=== PATIENT | male | born 1975 | race Caucasian/White ===

== ENCOUNTER 2016-12-23 11:25 | Observation (INO) | payer OTHER ==
[2016-12-23 11:32] VITALS: BMI 25.8
[2016-12-23] MEDS ORDERED: Sodium Chloride 0.9% 1,000 ML IV STA (11:45)
--- NOTE | 2016-12-23 12:07 | ED PDOC ---
Arrival/HPI - General Chief Complaint: Syncope Time Seen by Provider: 12/23/16 11:32 Historian: Patient - History of Present Illness Narrative History of Present Illness (Text): 12/23/16 11:32 Vadim Cazares is a 41 year old male, whose past medical history includes kidney stones and hepatitis B, who presents to the emergency department after a syncopal episode prior to arrival. Patient was in Dr. Hernandez's office getting blood drawn. While sitting in a chair for blood draw, patient remembers starting to feel dizzy and reportedly passed out. Patient may had some jerking movements and possible seizure while unresponsive. Patient was helped down to the floor and patient woke up on the floor. Patient denies any trauma, head injury, headache, dizziness, or chest pain. Patient notes that he has had right sided abdominal pain for the past two months which is why he was in Dr. Hernandez's office. Patient denies any urinary symptoms, back pain, or any other complaint at this time. PMD: Dr. Hernandez Time/Duration: Prior to Arrival Symptom Onset: Sudden Symptom Course: Improving Activities at Onset: Light Context: Other (Dr. Hernandez's office) Past Medical History - Provider Review Nursing Documentation Reviewed: Yes - Infectious Disease Hx of Infectious Diseases: None - Genitourinary/Gynecological Hx Genitourinary Disorders: Yes Other/Comment: pt is on "[employer]" for kidney stones. - Psychiatric Hx Substance Use: No - Anesthesia Hx Anesthesia: No Family/Social History - Physician Review Nursing Documentation Reviewed: Yes Family/Social History: No Known Family HX Smoking Status: Never Smoked Hx Alcohol Use: No Hx Substance Use: No Allergies/Home Meds Allergies/Adverse Reactions: Allergies No Known Allergies Allergy (Verified 12/23/16 11:32) Home Medications: Home Meds Medication Instructions Recorded Confirmed No Known Home Med 12/23/16 12/23/16 Review of Systems - Physician Review All systems were reviewed & negative as marked: Yes - Review of Systems Constitutional: absent: Fevers, Night Sweats Eyes: absent: Vision Changes ENT: absent: Hearing Changes Respiratory: absent: SOB, Cough Cardiovascular: Syncope. absent: Chest Pain Gastrointestinal: Abdominal Pain Genitourinary Male: absent: Dysuria, Frequency, Hematuria, Urinary Output Changes Musculoskeletal: absent: Back Pain, Neck Pain Skin: absent: Rash, Pruritis Neurological: Other. absent: Headache, Dizziness Endocrine: absent: Diaphoresis Hemo/Lymphatic: absent: Easy Bleeding Psychiatric: absent: Depression Physical Exam Vital Signs Temp Pulse Resp BP Pulse Ox 12/23/16 15:22 98 F 75 18 92/56 L 100 12/23/16 13:40 70 18 101/67 98 12/23/16 11:53 98.3 F 75 17 99/69 L 99 Temperature: Afebrile Blood Pressure: Hypotensive Pulse: Regular Respiratory Rate: Normal Appearance: Positive for: Well-Appearing, Non-Toxic, Comfortable Pain Distress: None Mental Status: Positive for: Alert and Oriented X 3 Finger Stick Blood Glucose: 101 - Systems Exam Head: Present: Atraumatic, Normocephalic Pupils: Present: PERRL Conjunctiva: Present: Normal Mouth: Present: Moist Mucous Membranes Pharnyx: Present: Normal. No: ERYTHEMA Neck: Present: Normal Range of Motion Respiratory/Chest: Present: Clear to Auscultation, Good Air Exchange. No: Respiratory Distress, Accessory Muscle Use Cardiovascular: Present: Regular Rate and Rhythm, Normal S1, S2. No: Murmurs Abdomen: Present: Normal Bowel Sounds. No: Tenderness, Distention, Peritoneal Signs Back: Present: Normal Inspection Upper Extremity: Present: Normal Inspection. No: Cyanosis, Edema Lower Extremity: Present: Normal Inspection. No: Edema Neurological: Present: GCS=15, CN II-XII Intact, Speech Normal, Motor Func Grossly Intact Skin: Present: Warm, Dry, Normal Color. No: Rashes Psychiatric: Present: Alert, Oriented x 3, Normal Insight, Normal Concentration Medical Decision Making ED Course and Treatment: 12/23/16 11:32 Impression: 41 year old male complaining of a syncopal episode in Dr. Hernandez's office prior to arrival. Differential Diagnosis include but are not limited to: Vasovagal syncope related to blood draw vs. less likely Cardiogenic or Neurogenic syncope vs seizure Plan: -- Abdomen and Pelvis CT w/o contrast -- EKG -- Chest X-ray -- Urine Culture and Urinalysis -- Labs -- Toradol and IV Fluids -- Reassess and disposition Progress Notes: EKG: Ordered, reviewed, and independently interpreted the EKG. Rate : 66 BPM Rhythm : NSR Interpretation : Normal intervals. Normal axis. No ST-T wave changes. Comparison : No previous EKG for comparison. 12/23/16 12:[address]: Creator : Fredy Phelps MD FINDINGS: HEMORRHAGE:No intracranial hemorrhage. BRAIN:No mass effect or edema. No atrophy or chronic microvascular ischemic changes. VENTRICLES:Unremarkable. No hydrocephalus. CALVARIUM:Unremarkable. PARANASAL SINUSES:Unremarkable as visualized. No significant inflammatory changes. MASTOID AIR CELLS:Unremarkable as visualized. No inflammatory changes. OTHER FINDINGS:None. IMPRESSION: Normal CT of the Head. 12/23/16 13:[address]: Creator : Fredy Phelps MD FINDINGS: LOWER THORAX:Unremarkable. LIVER:Unremarkable. No gross lesion or ductal dilatation. GALLBLADDER AND BILE DUCTS:Unremarkable. PANCREAS:Unremarkable. No gross lesion or ductal dilatation. SPLEEN:Unremarkable. ADRENALS:Unremarkable. No mass. KIDNEYS AND URETERS: There is a large stone in the right renal pelvis measuring 11 mm in length and 7 mm in diameter. This does not produce obstruction. There is a very thin linear stone in the region of the right UVJ seen on image 162 series 2. This does not produce obstruction. This measures 1 mm in thickness and 4 mm in length. VASCULATURE:Unremarkable. No aortic aneurysm. BOWEL:Unremarkable. No obstruction. No gross mural thickening. APPENDIX:Unremarkable. Normal appendix. PERITONEUM:Unremarkable. No free fluid. No free air. LYMPH NODES:Unremarkable. No enlarged lymph nodes. BLADDER:Unremarkable. REPRODUCTIVE:Unremarkable. BONES:No acute fracture. OTHER FINDINGS:None. IMPRESSION: Small thin 1 x 4 mm stone in the region of the right UVJ without obstruction. 11 x 7 mm stone in the right renal pelvis without obstruction 12/23/16 15:05 Chest X-ray: Creator : Fredy Phelps MD FINDINGS: LUNGS:No active pulmonary disease. PLEURA:No significant pleural effusion identified. No pneumothorax apparent. CARDIOVASCULAR:Normal. OSSEOUS STRUCTURES:No significant abnormalities. VISUALIZED UPPER ABDOMEN:Normal. OTHER FINDINGS:None. IMPRESSION: No active disease. 12/23/16 16:58 Patient with noted history with syncope vs new onset seizure. Imaging with renal stones as noted. Discussed with Dr. Hernandez, who said to place the patient on tele for possible new onset seizure and get neuro consult as well consult for stones. - Lab Interpretations Lab Results: 12/23/16 13:07 12/23/16 13:07 Lab Results 12/23/16 13:07: Lipase 188 12/23/16 13:07: Sodium 140, Potassium 4.2, Chloride 104, Carbon Dioxide 27, Anion Gap 13, BUN 13, Creatinine 0.9, Est GFR ( Amer) > 60, Est GFR (Non- Af Amer) > 60, Random Glucose 107, Calcium 9.0, Magnesium 2.2, Total Bilirubin 0.5, AST 36, ALT 49, Alkaline Phosphatase 100, Lactate Dehydrogenase 516, Total Creatine Kinase 123, Troponin I < 0.01, Total Protein 7.9, Albumin 4.5, Globulin 3.4, Albumin/Globulin Ratio 1.3 12/23/16 13:07: PT 10.7, INR 0.99, APTT 24.7 12/23/16 13:07: WBC 6.5, RBC 5.10, Hgb 14.1, Hct 41.6 L, MCV 81.6, MCH 27.6, MCHC 33.9, RDW 13.4, Plt Count 178, MPV 10.6, Gran % 65.4, Lymph % (Auto) 27.7, [place] % (Auto) 6.5 H, Eos % (Auto) 0.2 L, Baso % (Auto) 0.2, Gran # 4.23, Lymph # 1.8, [place] # 0.4, Eos # 0.0, Baso # 0.01 12/23/16 11:42: POC Glucose (mg/dL) 101 12/23/16 11:41: Urine Color Yellow, Urine Appearance Clear, Urine pH 6.0, Ur Specific [place] 1.010, Urine Protein Negative, Urine Glucose (UA) Negative, Urine Ketones Negative, Urine Blood Trace-intact H, Urine Nitrate Negative, Urine Bilirubin Negative, Urine Urobilinogen 0.2, Ur Leukocyte Esterase Negative , Urine RBC 0 - 2, Urine WBC 0 - 2, Urine Bacteria Trace I have reviewed the lab results: Yes - RAD Interpretation Radiology Orders: 12/23/16 11:38 CHEST TWO VIEWS (PA/LAT) [RAD] Stat 12/23/16 11:45 ABD & PELVIS W/O PO OR IV CONT [CT] Stat 12/23/16 12:29 Brain [HEAD W/O CONTRAST] [CT] Stat - Medication Orders Current Medication Orders: Discontinued Medications Sodium Chloride (Sodium Chloride 0.9%) 1,000 mls @ 999 mls/hr IV .Q1H1M STA Stop: 12/23/16 12:45 Last Admin: 12/23/16 12:30 Dose: 999 mls/hr Ketorolac Tromethamine (Toradol) 30 mg IVP STAT STA Stop: 12/23/16 11:46 Last Admin: 12/23/16 12:30 Dose: 30 mg - Scribe Statement The provider has reviewed the documentation as recorded by the Nir Barba Provider Scribe Attestation: All medical record entries made by the Karynibolga were at my direction and personally dictated by me. I have reviewed the chart and agree that the record accurately reflects my personal performance of the history, physical exam, medical decision making, and the department course for this patient. I have also personally directed, reviewed, and agree with the discharge instructions and disposition. Disposition/Present on Arrival - Present on Arrival Any Indicators Present on Arrival: No History of DVT/PE: No History of Uncontrolled Diabetes: No Urinary Catheter: No History of Decub. Ulcer: No History Surgical Site Infection Following: None - Disposition Have Diagnosis and Disposition been Completed?: Yes Diagnosis: Syncope, Ureteral stone, Kidney stone Disposition: HOSPITALIZED Disposition Time: 16:45 Patient Plan: Observation, Telemetry Condition: FAIR Discharge Instructions (ExitCare): Syncope (ED) Referrals: Lorna Hernandez MD [Primary Care Provider] - Follow up with primary
--- NOTE | 2016-12-23 12:44 | CT ---
PROCEDURE: CT HEAD WITHOUT CONTRAST. HISTORY: syncope; possible seizure COMPARISON: None available. TECHNIQUE: Axial computed tomography images were obtained through the head/brain without intravenous contrast. Radiation dose: Total exam DLP = 629 mGy-cm. This CT exam was performed using one or more of the following dose reduction techniques: Automated exposure control, adjustment of the mA and/or kV according to patient size, and/or use of iterative reconstruction technique. FINDINGS: HEMORRHAGE: No intracranial hemorrhage. BRAIN: No mass effect or edema. No atrophy or chronic microvascular ischemic changes. VENTRICLES: Unremarkable. No hydrocephalus. CALVARIUM: Unremarkable. PARANASAL SINUSES: Unremarkable as visualized. No significant inflammatory changes. MASTOID AIR CELLS: Unremarkable as visualized. No inflammatory changes. OTHER FINDINGS: None. IMPRESSION: Normal CT of the Head.
--- NOTE | 2016-12-23 12:52 | CT ---
PROCEDURE: CT Abdomen and Pelvis without intravenous contrast HISTORY: R side kidney stone; R side abd pain COMPARISON: None. TECHNIQUE: Without contrast.. Contrast Dose: Radiation dose: Total exam DLP = 338 mGy-cm. This CT exam was performed using one or more of the following dose reduction techniques: Automated exposure control, adjustment of the mA and/or kV according to patient size, and/or use of iterative reconstruction technique. FINDINGS: LOWER THORAX: Unremarkable. LIVER: Unremarkable. No gross lesion or ductal dilatation. GALLBLADDER AND BILE DUCTS: Unremarkable. PANCREAS: Unremarkable. No gross lesion or ductal dilatation. SPLEEN: Unremarkable. ADRENALS: Unremarkable. No mass. KIDNEYS AND URETERS: There is a large stone in the right renal pelvis measuring 11 mm in length and 7 mm in diameter. This does not produce obstruction. There is a very thin linear stone in the region of the right UVJ seen on image 162 series 2. This does not produce obstruction. This measures 1 mm in thickness and 4 mm in length. VASCULATURE: Unremarkable. No aortic aneurysm. BOWEL: Unremarkable. No obstruction. No gross mural thickening. APPENDIX: Unremarkable. Normal appendix. PERITONEUM: Unremarkable. No free fluid. No free air. LYMPH NODES: Unremarkable. No enlarged lymph nodes. BLADDER: Unremarkable. REPRODUCTIVE: Unremarkable. BONES: No acute fracture. OTHER FINDINGS: None. IMPRESSION: Small thin 1 x 4 mm stone in the region of the right UVJ without obstruction. 11 x 7 mm stone in the right renal pelvis without obstruction
[2016-12-23 13:08] LABS: ADD MANUAL DIFF? NO
[2016-12-23 13:10] LABS: BASO # 0.01 K/mm3 (0.0-2.0); BASO % 0.2 % (0.0-3.0); EOS % 0.2 % (1.5-5.0); GRAN # 4.23 (1.4-6.5); GRAN % 65.4 % (50.0-68.0); HEMATOCRIT 41.6 % (42.0-52.0); LYMPH # 1.8 (1.2-3.4); LYMPH % 27.7 % (22.0-35.0); MEAN CELL VOLUME 81.6 fL (80.0-105.0); MEAN CORPUSCULAR HEMOGLOBIN 27.6 pg (25.0-35.0); MEAN CORPUSCULAR HGB CONC 33.9 g/dl (31.0-37.0); MEAN PLATELET VOLUME 10.6 fl (7.0-11.0); MONO # 0.4 (0.1-0.6); MONO % 6.5 % (1.0-6.0); PLATELET COUNT 178 10^3/uL (120.0-450.0); RED CELL DISTRIBUTION WIDTH 13.4 % (11.5-14.5); WHITE BLOOD COUNT 6.5 10^3/ul (4.5-11.0)
[2016-12-23 13:20] LABS: ALB/GLOB RATIO 1.3 (1.1-1.8); ALKALINE PHOSPHATASE 100 U/L (38-133); ALT/SGPT 49 U/L (7-56); AST/SGOT 36 U/L (15-59); BILIRUBIN,TOTAL 0.5 mg/dL (0.2-1.3); BLOOD UREA NITROGEN 13 mg/dL (7-21); CARBON DIOXIDE 27 mmol/L (21-33); CHLORIDE 104 mmol/L (95-110); GFR AFRICAN-AMERICAN > 60; GLUCOSE,RANDOM 107 mg/dL (70-110); MAGNESIUM 2.2 mg/dL (1.7-2.2); POTASSIUM 4.2 mmol/L (3.6-5.0); SODIUM 140 mmol/L (132-148); TOTAL PROTEIN 7.9 g/dL (5.8-8.3)
[2016-12-23 13:27] LABS: INR 0.99 (0.93-1.08); PARTIAL THROMBOPLASTIN TIME 24.7 Seconds (23.7-30.8)
[2016-12-23 13:44] LABS: TROPONIN I < 0.01 ng/mL
[2016-12-23 14:57] LABS: URINE BILIRUBIN NEGATIVE (NEGATIVE); URINE BLOOD TRACE-INTACT (NEGATIVE); URINE GLUCOSE (UA) NEGATIVE (NEGATIVE); URINE KETONE NEGATIVE (NEGATIVE); URINE LEUKOCYTE ESTERASE NEGATIVE Leu/uL (NEGATIVE); URINE PROTEIN NEGATIVE mg/dL (<30 mg/dL); URINE UROBILINOGEN 0.2 E.U./dL (<1 E.U./dL)
[2016-12-23 14:59] LABS: URINE APPEARANCE CLEAR (CLEAR); URINE COLOR YELLOW (YELLOW)
--- NOTE | 2016-12-23 15:04 | RAD ---
HISTORY: syncope COMPARISON: No prior. TECHNIQUE: Chest PA and lateral FINDINGS: LUNGS: No active pulmonary disease. PLEURA: No significant pleural effusion identified. No pneumothorax apparent. CARDIOVASCULAR: Normal. OSSEOUS STRUCTURES: No significant abnormalities. VISUALIZED UPPER ABDOMEN: Normal. OTHER FINDINGS: None. IMPRESSION: No active disease.
[2016-12-23 15:19] LABS: URINE BACTERIA TRACE (NEG); URINE RBC 0 - 2 /hpf (0-2); URINE WBC 0 - 2 /hpf (0-6)
[2016-12-23] MEDS ORDERED: HYDROmorphone 0.5 mg/0.5 ml ISec IVP PRN (21:06)
--- NOTE | 2016-12-23 21:37 | CARD ---
APPROVED REPORT EKG Measurement Heart [id number] <Conclusion> Normal sinus rhythm Normal ECG
[2016-12-23] MEDS: Sodium Chloride 0.9% 1,000 ML IV SCH (22:53)
--- NOTE | 2016-12-24 08:11 | CON ---
DATE: 12/23/2016 This is a 41-year-old male with a past medical history of hepatitis B, kidney stones and came to Dr. Hernandez's office, was getting blood drawn, while sitting in the chair, felt dizzy and passed out and h ad some jerking movements while unresponsive and did not have tongue bite. No urinary incontinence. Woke up on the floor. PAST MEDICAL HISTORY: As above, had a similar kind of episode a few years ago. SOCIAL HISTORY: Does not smoke, does not drink. ALLERGIES: No known drug allergies. REVIEW OF SYSTEMS: A 10-point was negative, except passing out spell. PHYSICAL EXAMINATION: VITAL SIGNS: Blood pressure 101/67. HEENT: Normocephalic, atraumatic. NECK: Supple. NEUROLOGIC: Alert, awake, oriented x 3. No aphasia. Cranial nerves II-XII were tested. Pupils marga ctive. EOM intact. Visual [place] full. No facial asymmetry. Tongue midline. Motor examination: Moves all the extremities equally. Tone normal. Deep tendon reflexes 1+. Both plantars downgoing. Sensory appears intact. Cerebellar, gait deferred. IMPRESSION: Syncope, possibly vasovagal, less likely seizure. CAT scan of the head was done, which was reported negative. We will do EEG in the morning. Workup in progress. We will follow up. James Echevarria MD cc: [id number] TT: 12/24/2016 08:10:47 Confirmation # [id number] Dictation # [id number]
[2016-12-24] MEDS: Sodium Chloride 0.9% 1,000 ML IV SCH ×2 (11:03→21:55)
--- NOTE | 2016-12-24 16:28 | US ---
PROCEDURE: Bilateral carotid artery duplex ultrasound HISTORY: Carotid stenosis syncope PHYSICIAN(S): Haroldo Carter MD. TECHNIQUE: Duplex sonography and color-flow Doppler were used to evaluate the carotid bifurcations and limited segments of the vertebral arteries bilaterally. FINDINGS: There is minimal smooth intimal - medial thickening noted at the carotid bifurcations bilaterally. The peak systolic velocity in the proximal right internal carotid artery is 82 cm/sec. This corresponds to a 0-19 percent proximal right ICA stenosis. Normal systolic velocities are noted in the proximal right external carotid artery. There is antegrade flow in the right vertebral artery. The peak systolic velocity in the proximal left internal carotid artery is 71 cm/sec. This corresponds to a 0-19 percent proximal left ICA stenosis. Normal systolic velocities are noted in the proximal left external carotid artery. There is antegrade flow in the left vertebral artery. IMPRESSION: 1. Bilateral 0-19 percent proximal ICA stenoses. 2. Antegrade flow in both vertebral arteries.
[2016-12-25 06:47] VITALS: O2SAT 97
--- NOTE | 2016-12-25 08:16 | HP ---
CHIEF COMPLAINT: Syncopal attack/seizure. HISTORY OF PRESENT ILLNESS: The patient is a 41-year-old male with past medical history of nephrolithiasis and hepatitis B. Came to my office for regular routine visit and was complaining about pain in the right side of middle area and wants to get a blood test. As soon as my office shoe caser put needle, actually she susie the blood, but patient started seizing and I witnessed his extremity movements and head movements. We called 911 and transferred patient to the Emergency Room. After 5 minutes, the patient came in full sences but was still pale, lethargic . Does not remember what happened. He knows that he was feeling dizzy and reportedly passed out. The patient may have some jerking movements and possible seizure while unresponsive. The patient was helped down to the floor and patient woke up on the floor. The patient denies any trauma, head injury, headache, dizziness or chest pain. The patient noticed that he had right-sided abdominal pain for the past 2 months. That is why he was in my office, for pain. The patient is seen in the telemetry. No nausea, vomiting, diarrhea. PAST MEDICAL HISTORY: History of right kidney stones and right hydronephrosis. HABITS: Never smoked, no drugs, no ethanol. ALLERGIES: The patient is not allergic with any medication. 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 REVIEW OF SYSTEMS: The patient is seen and examined on the bedside in the telemetry. Looks comfortable. No nausea, vomiting, diarrhea. No hematuria or hematochezia. No swelling of the leg. No chest pain, no palpitation, headache , dizziness. Still having pain in the right side of the abdomen and the mid quadrant. No dysuria. No headache, no dizziness. No rashes. Has easily bleeding, depression. PHYSICAL EXAMINATION: VITAL SIGNS: Temperature 98.3, pulse 77, blood pressure 147/59, respiratory 20. HEENT: Head normocephalic, atraumatic. Eyes PERRLA. Extraocular muscles intact. Conjunctivae clear. Nose patent. NECK: Supple. No carotid bruit, JVD or thyromegaly. CHEST: Bilaterally symmetrical. HEART: S1, S2 positive. LUNGS: Clear to auscultation. ABDOMEN: Soft. Bowel sounds positive. No organomegaly. EXTREMITIES: No edema, no cyanosis. NEUROLOGIC: The patient awake, alert, moving all 4 extremities. No focal deficit. LABORATORY DATA: White blood cells 6.5, hemoglobin 14.1, hematocrit 41.6, platelets 178. Sodium 140, potassium 4.2, BUN 13, creatinine 0.9, hemoglobin A1c 5.8. TSH 4.72. Liver function test within normal limits. ASSESSMENT AND PLAN: The patient is a 41-year-old male with history of nephrolithiasis, has hematuria. Hepatitis B surface antigen is positive. Went for ultrasound of the carotid artery, showed bilateral 0% to 19% proximal internal carotid artery stenosis, antegrade flow in both vertebral arteries. Seen by neurologist Dr. Echevarria. Syncopal attack possibly vasovagal, rule out seizures. CAT scan of the head done, which was negative. Dr. Echevarria ordered EEG, workup in the process. CAT scan of the abdomen and pelvis done, showed small stone in the region of the right ureterovesical junction without obstruction, stone in the right renal pelvis without obstruction. We ordered urine . Urology consult called with Dr. Otoniel Haddad. Given pain medication , The patient is on fall and seizure precautions. We will follow up. Lorna Hernandez MD cc: [id number] TT: 12/25/2016 00:27:01 sn MTDD
[2016-12-25] MEDS: Sodium Chloride 0.9% 1,000 ML IV SCH (09:13)
[2016-12-25 14:21] VITALS: BP 109/73; RESP 18; TEMP 98.7
[2016-12-25 15:07] VITALS: PULSE 72
[2016-12-25 20:01] LABS: HEPATITIS B VIRUS DNA 3.74 log IU/mL (<1.30)
--- NOTE | 2016-12-29 18:58 | DS ---
The patient was admitted on 12/23/16, was sent from my office, and I saw the patient in the office not in the hospital. I saw the patient first in the hospital on 12/24/16. I did a history and physical and same day we discharged the patient. So for details see my history and physical. We admitted the patient, did carotid artery ultrasound, reviewed by me. I did CAT scan of the head, was reviewed by me. Seen by the neurologist. CAT scan of abdomen and pelvis done, reviewed by me. Discharged home because was cleared by the neurologist. For details, see my H and P. Lorna Hernandez MD cc: [id number] TT: 12/29/2016 18:57:31 dn
--- NOTE | 2016-12-30 08:12 | EEG ---
DATE: 12/24/2016 The patient has a history of seizures, syncope and a kidney stone. MEDICATIONS: Toradol, Dilaudid. DESCRIPTION: Background activity of this tracing was composed of 8 cycles per second alpha rhythm. A small amount of beta activity 16-20 cycles per second was noted in the tracing. Theta activity 5-7 cycles per second. Drowsiness was composed of mixed beta and theta activity. Photic stimulation di d not change the record. No paroxysmal activity was seen in the record. IMPRESSION: Mild bilateral cerebral dysfunction, diffuse. James Swathi GARCIA cc: [id number] TT: 12/26/2016 21:54:13 Confirmation # [id number] Dictation # [id number]
== END 2016-12-25 18:16 | disposition home or self-care (01) ==
LOC: ED 11:25 → ERH 16:27 → 2RSO 18:53
PROVIDERS: ADMIT Internal Medicine; ATTEND Internal Medicine
DX: R55 Syncope and collapse (principal); N20.2 Calculus of kidney with calculus of ureter; I65.23 Occlusion and stenosis of bilateral carotid arteries; Z87.442 Personal history of urinary calculi; B19.10 Unspecified viral hepatitis B without hepatic coma; R31.9 Hematuria, unspecified
CPT/HCPCS: 36415; 70450; 71020; 74176; 80053; 80074; 81001; 82550; 82948; 83036; 83615; 83690; 83735; 84443; 84484; 85025; 85610; 85730; 87086; 87517; 93005; 93880; 95812; 96361; 96374; 96375; 99285; G0378; J1170; J1885; J7040